=== PATIENT | female | born 1945 | race Caucasian/White ===

== ENCOUNTER → 2016-06-25 | Outpatient (CLI) | payer MEDICARE, BC | END | disposition home or self-care (01) | LOC: MW.CHFP 10:00 | PROVIDERS: ATTEND Emergency Medicine | DX: N81.10 Cystocele, unspecified (principal); M79.642 Pain in left hand; G89.29 Other chronic pain; M79.641 Pain in right hand; Z23 Encounter for immunization | CPT/HCPCS: 81001; 90732; G0009; G0463 ==

== ENCOUNTER → 2016-08-15 | Outpatient (CLI) | payer MEDICARE, BC | LOC: MW.CHUR 09:47 | PROVIDERS: ATTEND Urology | DX: N81.10 Cystocele, unspecified (principal); R32 Unspecified urinary incontinence | CPT/HCPCS: 81001; G0463 ==

== ENCOUNTER → 2016-10-02 | Outpatient (CLI) | payer MEDICARE, BC | LOC: MW.CHFP 14:04 | PROVIDERS: ATTEND Emergency Medicine | DX: J31.2 Chronic pharyngitis (principal) | CPT/HCPCS: 36415; 85025; 87070; G0463 ==

== ENCOUNTER 2018-12-21 10:36 | Emergency (ER) | payer MEDICARE, BC ==
[2018-12-21 10:44] VITALS: BP 146/54
[2018-12-21] MEDS ORDERED: Morphine 2 MG/ML Syringe IM ONE (10:57)
[2018-12-21] MEDS ORDERED: Ondansetron 4 MG Tab.DIS PO ONE (10:57)
--- NOTE | 2018-12-21 10:57 | EDM.PDOC ---
ED HPI GENERAL MEDICAL PROBLEM - General Chief Complaint: Upper Extremity Injury/Pain Stated Complaint: INJURED RT WRIST Time Seen by Provider: 12/21/18 10:43 Source of Information: Reports: Patient History Limitations: Reports: No Limitations - History of Present Illness INITIAL COMMENTS - FREE TEXT/NARRATIVE: HISTORY AND PHYSICAL: History of present illness: Patient is a 73-year-old female who presents to the emergency room today with complaints of right wrist pain after a fall. 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 She has pain namely in the wrist that radiates up into her forearm. She denies hitting her head or having any loss of consciousness. Patient denies any fever, chills, headache, change in vision, syncope or near syncope. Denies any chest pain, back pain, shortness of breath or cough. Denies any GI or symptoms. Patient has been eating and drinking appropriately. Review of systems: As per history of present illness and below otherwise all systems reviewed and negative. Past medical history: As per history of present illness and as reviewed below otherwise noncontributory. Surgical history: As per history of present illness and as reviewed below otherwise noncontributory. Social history: See social history for further information Family history: As per history of present illness and as reviewed below otherwise noncontributory. Physical exam: General: Well-developed and well-nourished 73-year-old female. Alert and oriented. Nontoxic appearing and in no acute distress. HEENT: Atraumatic, normocephalic, pupils equal and reactive bilaterally, negative for conjunctival pallor or scleral icterus, mucous membranes moist, trachea midline. No drooling or trismus noted. No meningeal signs. No hot potato voice noted. Lungs: Clear to auscultation, breath sounds equal bilaterally, chest nontender. Heart: S1S2, regular rate and rhythm without overt murmur Abdomen: Soft, nondistended, nontender. Skin: Intact, warm, dry. No lesions or rashes noted. Extremities: Right wrist pain with palpation, soft tissue swelling. Moves all extremities per self without difficulty or deficits. Strong radial pulse. Capillary refill less than 3 seconds. Neurovascular unremarkable. Neuro: Awake, alert, oriented. Cranial nerves II through XII unremarkable. Cerebellum unremarkable. Motor and sensory unremarkable throughout. Exam nonfocal. Notes: X-ray shows a dorsally impacted distal radial fracture. Dr Bolton, Orthopedist in [place], was consulted on this case. Patient can follow up with ortho in the next 1-2 days. This information was shared with patient/family. Fiberglass splint applied with sling. The need for follow-up was discussed with patient and family member at bedside. Supportive care measures were reviewed and discussed. Voices understanding and is agreeable to plan of care. Denies any further questions or concerns at this time. Diagnostics: Right wrist x-ray Therapeutics: Morphine, Zofran Prescription: Brohard, Zofran Impression: Closed radial fracture Plan: 1. Rest, ice, elevate the affected extremity. Please wear the splint and sling as directed. 2. Tylenol and/or Ibuprofen as needed for pain management. 3. Follow up with the Orthopedic provider as we discussed. Return to the ED as needed and as discussed. Definitive disposition and diagnosis as appropriate pending reevaluation and review of above. Right Arm Pain Score (Numeric/FACES): 10 - Related Data Allergies Allergy/AdvReac Type Severity Reaction Status Date / Time Sulfa (Sulfonamide Allergy Cannot Verified 12/21/18 10:39 Antibiotics) Remember Home Meds: Home Meds Pantoprazole [ProTONIX] 40 mg PO DAILY 03/18/14 [History] Tiotropium [Spiriva HandiHaler] 1 inhalation INH ACBREAKFAST 03/18/14 [History] ALPRAZolam [Alprazolam] 1 tab PO ASDIRECTED PRN 02/25/15 [History] Aspirin [Halfprin] 1 tab PO DAILY 02/25/15 [History] Fluocinonide [Lidex 0.05% Oint] 1 applic TOP ASDIRECTED PRN 02/25/15 [History] Fluticasone/Salmeterol [Advair Diskus 250-50] 1 inh INH BID 02/25/15 [History] Acetaminophen/HYDROcodone [Brohard 325-5 MG] 1 tab PO Q4H #30 tablet 12/21/18 [Rx] Ondansetron [Zofran ODT] 4 mg PO Q6H PRN #10 tab.dis 12/21/18 [Rx] Past Medical History Other HEENT History: Pharyngitis, Eyelid cyst, wears glasses Other Respiratory History: 40 yr history of smoking QUIT 10 yrs ago, Hx: Lung biopsy-from pnumonia- result fluid, COPD-uses inhaler daily- used this AM Other Gastrointestinal History: takes protonix daily Other Genitourinary History: hx: Acute UTI Other Musculoskeletal History: Some arthritits to knees, hx: Impinged Right Shoulder "doing pretty good currently", restless legs-uses alprazolam prn Other Dermatologic History: Dermatitis - Past Surgical History Other GI Surgeries/Procedures: Lap Cholecystectomy Other Female Surgeries/Procedures: Colporrhaphy, Repair of Cystocele Review of Systems - Review of Systems Review Of Systems: ROS reveals no pertinent complaints other than HPI. ED EXAM, GENERAL - Physical Exam Exam: See Below (See dictation) Course - Vital Signs Last Recorded V/S: Last Vital Signs Temp 96.6 F 12/21/18 10:40 Pulse 79 12/21/18 10:40 Resp 18 12/21/18 10:40 BP 146/54 H 12/21/18 10:40 Pulse Ox 100 12/21/18 10:40 - Orders/Labs/Meds Orders: Active Orders 24 hr Category Date Time Status Wrist Comp Min 3V Rt [CR] Stat Exams 12/21/18 10:45 Taken DME for Discharge [COMM] Stat Oth 12/21/18 11:16 Ordered Meds: Medications Discontinued Medications Generic Name Dose Route Start Last Admin Trade Name Freq PRN Reason Stop Dose Admin Morphine Sulfate 2 mg 12/21/18 10:57 12/21/18 11:11 Morphine IM 12/21/18 10:58 2 mg ONETIME ONE Administration Ondansetron HCl 4 mg 12/21/18 10:57 12/21/18 11:11 Zofran Odt PO 12/21/18 10:58 4 mg ONETIME ONE Administration Departure - Departure Time of Disposition: 11:57 Disposition: Home, Self-Care 01 Clinical Impression: Fracture of radius Qualifiers: Encounter type: initial encounter Radius location: distal Fracture type: closed Fracture morphology: other fracture Laterality: right Qualified Code(s): S52.591A - Other fractures of lower end of right radius, initial encounter for closed fracture - Discharge Information Prescriptions: Acetaminophen/HYDROcodone [Brohard 325-5 MG] 1 tab PO Q4H #30 tablet Ondansetron [Zofran ODT] 4 mg PO Q6H PRN #10 tab.dis PRN Reason: Nausea Instructions: Radial Fracture Referrals: PCP,Unknown [Primary Care Provider] - Forms: ED Department Discharge Additional Instructions: The following information is given to patients seen in the emergency department who are being discharged to home. This information is to outline your options for follow-up care. We provide all patients seen in our emergency department with a follow-up referral. The need for follow-up, as well as the timing and circumstances, are variable depending upon the specifics of your emergency department visit. If you don't have a primary care physician on staff, we will provide you with a referral. We always advise you to contact your personal physician following an emergency department visit to inform them of the circumstance of the visit and for follow-up with them and/or the need for any referrals to a consulting specialist. The emergency department will also refer you to a specialist when appropriate. This referral assures that you have the opportunity for follow-up care with a specialist. All of these measure are taken in an effort to provide you with optimal care, which includes your follow-up. Under all circumstances we always encourage you to contact your private physician who remains a resource for coordinating your care. When calling for follow-up care, please make the office aware that this follow-up is from your recent emergency room visit. If for any reason you are refused follow-up, please contact the [facility] Emergency Department at and asked to speak to the emergency department charge nurse. [facility] [address] [place] [id number] [address] [facility] - [facility] Professional [facility] [address] [place] [address], [address] [place] [address] 1. Rest, ice, elevate the affected extremity. Please wear the splint and sling as directed. 2. Tylenol and/or Ibuprofen as needed for pain management. 3. Follow up with the Orthopedic provider as we discussed. Return to the ED as needed and as discussed. - My Orders Last 24 Hours: My Active Orders 12/21/18 10:45 Wrist Comp Min 3V Rt [CR] Stat 12/21/18 11:16 DME for Discharge [COMM] Stat - Assessment/Plan Last 24 Hours: My Active Orders 12/21/18 10:45 Wrist Comp Min 3V Rt [CR] Stat 12/21/18 11:16 DME for Discharge [COMM] Stat
--- NOTE | 2018-12-21 11:52 | CR ---
Indication: Injury and pain Technique: Right wrist 3 view Comparison: None Findings: There is a dorsally impacted and comminuted fracture of the distal radial metaphysis with dorsal angulation of the distal radial articular surface. Osteopenia. Distal ulna intact. No carpal malalignment. Degenerative disease Impression: Dorsally impacted distal radial fracture. Dictated by Gaurang Anaya MD @ Dec 21 2018 11:49AM Signed by Dr. Gaurang Anaya @ Dec 21 2018 11:50AM
== END 2018-12-21 12:04 | disposition home or self-care (01) ==
LOC: MW.ED 10:36
DX: S52.591A Other fractures of lower end of right radius, initial encounter for closed fracture (principal); J44.9 Chronic obstructive pulmonary disease, unspecified; Z88.2 Allergy status to sulfonamides; Z79.899 Other long term (current) drug therapy; Z79.82 Long term (current) use of aspirin; Z87.891 Personal history of nicotine dependence; W01.0XXA Fall on same level from slipping, tripping and stumbling without subsequent striking against object, initial encounter
CPT/HCPCS: 29125; 73110; 96372; 99283; A9270; J2270

== ENCOUNTER 2020-01-02 20:32 | Emergency (ER) | payer MEDICARE, BC ==
--- NOTE | 2020-01-02 20:34 | EDM.PDOC ---
ED HPI GENERAL MEDICAL PROBLEM - General Chief Complaint: Laceration Stated Complaint: LT ARM LACERATION Time Seen by Provider: 01/02/20 20:33 Source of Information: Reports: Patient History Limitations: Reports: No Limitations - History of Present Illness INITIAL COMMENTS - FREE TEXT/NARRATIVE: HISTORY AND PHYSICAL: History of present illness: Patient is a 74-year-old female who presents to the emergency room with complaints of a laceration to her left forearm. She states that she brushed her arm against a cupboard when she noticed the laceration/skin tear. She was zhen rned that it needed to be cleaned and possibly have stitches. She denies any other extremity involvement. Offers no systemic complaints. Review of systems: As per history of present illness and below otherwise all systems reviewed and negative. Past medical history: As per history of present illness and as reviewed below otherwise noncontributory. Surgical history: As per history of present illness and as reviewed below otherwise noncontributory. Social history: See social history for further information Family history: As per history of present illness and as reviewed below otherwise noncontributory. Physical exam: General: Thin well-nourished 74-year-old female. Alert and oriented. Nontoxic- appearing and in no acute distress. HEENT: Atraumatic, normocephalic, pupils equal and reactive bilaterally, negative for conjunctival pallor or scleral icterus, mucous membranes moist, TMs normal bilaterally, throat clear, neck supple, nontender, trachea midline. No drooling or trismus noted. No meningeal signs. No hot potato voice noted. Lungs: Clear to auscultation, breath sounds equal bilaterally, chest nontender. Heart: S1S2, regular rate and rhythm without overt murmur Abdomen: Soft, nondistended, nontender. Skin: 8 cm "U" show skin tear to the left mid forearm. Remaining skin is intact, warm, dry. No lesions or rashes noted. Hematologic: No petechiae or purpra. Mucosa appropriate color and normal nail bed color and refill. Extremities: She moves all extremities per self without difficulty or deficits, negative for cords or calf pain. Neurovascular unremarkable. Neuro: Awake, alert, oriented. Cranial nerves II through XII unremarkable. Cerebellum unremarkable. Motor and sensory unremarkable throughout. Exam nonfocal. Notes: Patient states that she had bumped her arm next to a cupboard, declines needing an x-ray. The skin tear is too superficial to do any type of suture. The area was thoroughly cleansed with chlorhexidine and wound wash. Steri-Strips, fourth inch were applied to the site. The nonstick dressing was applied. We discussed signs and symptoms that would prompt her to return to the emergency room and the need for follow-up with her primary care provider. Supportive care measures were reviewed and discussed. Voices understanding and is agreeable to plan of care. Denies any further questions or concerns at this time. Diagnostics: None Therapeutics: Tdap Prescription: None Impression: Skin tear, left arm Plan: 1. Keep the area clean and dry. Continue to monitor for signs of infection. Sutures to be removed in 7-10 days. 2. Tylenol and/or ibuprofen as needed for pain management. 3. Please follow-up with your primary care provider in the next 1-2 days. Return to the ED as needed and as discussed. Definitive disposition and diagnosis as appropriate pending reevaluation and review of above. - Related Data Allergies Allergy/AdvReac Type Severity Reaction Status Date / Time Sulfa (Sulfonamide Allergy Cannot Verified 01/02/20 21:10 Antibiotics) Remember Home Meds: Home Meds Pantoprazole [ProTONIX] 40 mg PO DAILY 03/18/14 [History] Tiotropium [Spiriva HandiHaler] 1 inhalation INH ACBREAKFAST 03/18/14 [History] ALPRAZolam [Alprazolam] 1 tab PO ASDIRECTED PRN 02/25/15 [History] Aspirin [Halfprin] 1 tab PO DAILY 02/25/15 [History] Fluocinonide [Lidex 0.05% Oint] 1 applic TOP ASDIRECTED PRN 02/25/15 [History] Fluticasone/Salmeterol [Advair Diskus 250-50] 1 inh INH BID 02/25/15 [History] Acetaminophen/HYDROcodone [[place] 325-5 MG] 1 tab PO Q4H #30 tablet 12/21/18 [Rx] Ondansetron [Zofran ODT] 4 mg PO Q6H PRN #10 tab.dis 12/21/18 [Rx] Past Medical History Other HEENT History: Pharyngitis, Eyelid cyst, wears glasses Other Respiratory History: 40 yr history of smoking QUIT 10 yrs ago, Hx: Lung biopsy-from pnumonia- result fluid, COPD-uses inhaler daily- used this AM Other Gastrointestinal History: takes protonix daily Other Genitourinary History: hx: Acute UTI Other Musculoskeletal History: Some arthritits to knees, hx: Impinged Right Shoulder "doing pretty good currently", restless legs-uses alprazolam prn Other Dermatologic History: Dermatitis - Infectious Disease History Infectious Disease History: Reports: Chicken Pox, Measles, Mumps - Past Surgical History Other GI Surgeries/Procedures: Lap Cholecystectomy Other Female Surgeries/Procedures: Colporrhaphy, Repair of Cystocele Social & Family History - Family History Family Medical History: Noncontributory - Caffeine Use Caffeine Use: Reports: Coffee, Tea ED ROS GENERAL - Review of Systems Review Of Systems: Comprehensive ROS is negative, except as noted in HPI. ED EXAM, SKIN/RASH Exam: See Below (See dictation) Course - Vital Signs Last Recorded V/S: Last Vital Signs Temp 96.6 F L 01/02/20 20:45 Pulse 81 01/02/20 20:45 Resp 20 01/02/20 20:45 BP 142/70 H 01/02/20 20:45 Pulse Ox 96 01/02/20 20:45 - Orders/Labs/Meds Orders: Active Orders 24 hr Category Date Time Status Communication Order [RC] STAT Care 01/02/20 20:40 Active Vaccines to be Administered [RC] PER UNIT ROUTINE Care 01/02/20 20:39 Active Meds: Medications Discontinued Medications Generic Name Dose Route Start Last Admin Trade Name Freq PRN Reason Stop Dose Admin Diphtheria/Tetanus/Acell Pertussis 0.5 ml 01/02/20 20:39 01/02/20 21:04 Adacel IM 01/02/20 20:40 0.5 ml .ONCE ONE Administration Departure - Departure Time of Disposition: 21:09 Disposition: Home, Self-Care 01 Clinical Impression: Skin tear - Discharge Information Instructions: Skin Tear, [id number] Referrals: Juno Ochoa MD [Primary Care Provider] - Forms: ED Department Discharge Additional Instructions: The following information is given to patients seen in the emergency department who are being discharged to home. This information is to outline your options for follow-up care. We provide all patients seen in our emergency department with a follow-up referral. The need for follow-up, as well as the timing and circumstances, are variable depending upon the specifics of your emergency department visit. If you don't have a primary care physician on staff, we will provide you with a referral. We always advise you to contact your personal physician following an emergency department visit to inform them of the circumstance of the visit and for follow-up with them and/or the need for any referrals to a consulting specialist. The emergency department will also refer you to a specialist when appropriate. This referral assures that you have the opportunity for follow-up care with a specialist. All of these measure are taken in an effort to provide you with optimal care, which includes your follow-up. Under all circumstances we always encourage you to contact your private physician who remains a resource for coordinating your care. When calling for follow-up care, please make the office aware that this follow-up is from your recent emergency room visit. If for any reason you are refused follow-up, please contact the [facility] Emergency Department at and asked to speak to the emergency department charge nurse. [facility] [address] [place] [address] [place] [address] Thank you for choosing the [facility] emergency department in [place] for your medical needs today. It was a pleasure caring for you. Today you were seen in the emergency department for an tear of the left forearm. 1. Keep the area clean and dry. Continue to monitor for signs of infection. These do not pull or rip away the Steri-Strips, these will fall off on their own. If you need to you may trim away the edges. If Steri-Strips should fall off within the next 1 to 3 days please replace them as I have given you additional Steri-Strips for home. 2. Tylenol and/or ibuprofen as needed for pain management. 3. Please follow-up with your primary care provider in the next 1-2 days. Return to the ED as needed and as discussed. Sepsis Event Note (ED) - Focused Exam Vital Signs: Vital Signs Temp Pulse Resp BP Pulse Ox 01/02/20 20:45 96.6 F L 81 20 142/70 H 96 - My Orders Last 24 Hours: My Active Orders 01/02/20 20:39 Vaccines to be Administered [RC] PER UNIT ROUTINE 01/02/20 20:40 Communication Order [RC] STAT - Assessment/Plan Last 24 Hours: My Active Orders 01/02/20 20:39 Vaccines to be Administered [RC] PER UNIT ROUTINE 01/02/20 20:40 Communication Order [RC] STAT
[2020-01-02] MEDS ORDERED: Diphtheria,Pertussis(Acell),Tetanus Vaccine 0.5 ML Syringe IM ONE (20:39)
[2020-01-02 21:16] VITALS: BP 142/70; PULSE 81
== END 2020-01-02 21:11 | disposition home or self-care (01) ==
LOC: MW.ED 20:32
DX: S51.812A Laceration without foreign body of left forearm, initial encounter (principal); J44.9 Chronic obstructive pulmonary disease, unspecified; Z88.2 Allergy status to sulfonamides; Z79.899 Other long term (current) drug therapy; Z23 Encounter for immunization; W26.9XXA Contact with unspecified sharp object(s), initial encounter
CPT/HCPCS: 90471; 90715; 99282; 99283-25

== ENCOUNTER 2020-05-29 09:04 | Inpatient (IN) | payer MEDICARE, BC ==
--- NOTE | 2020-05-29 09:18 | EDM.PDOC ---
ED HPI GENERAL MEDICAL PROBLEM - General Chief Complaint: Respiratory Problem Stated Complaint: COUGH,SORE THROAT,FEVER Time Seen by Provider: 05/29/20 09:17 Source of Information: Reports: Patient History Limitations: Reports: No Limitations - History of Present Illness INITIAL COMMENTS - FREE TEXT/NARRATIVE: Patient is a 75-year-old female who presents today for fatigue cough fevers. Patient states symptoms started last Saturday and she has been sore throat with a cough. She went to urgent care and was given steroids and a Z-Carlos. Patient states that she was also tested for Covid which was negative but believes she had exposure at the time. Patient reports today that she has had a chronic cough with sputum. Patient also reports some shortness of breath only with exe rtion. Patient chest pain to me with the report chest pain to the nurse. chest Pain Score (Numeric/FACES): 2 - Related Data Allergies Allergy/AdvReac Type Severity Reaction Status Date / Time Sulfa (Sulfonamide Allergy Cannot Verified 05/29/20 09:23 Antibiotics) Remember Home Meds: Home Meds Pantoprazole [ProTONIX] 40 mg PO DAILY 03/18/14 [History] Tiotropium [Spiriva HandiHaler] 1 inhalation INH ACBREAKFAST 03/18/14 [History] ALPRAZolam [Alprazolam] 0.5 mg PO ASDIRECTED PRN 02/25/15 [History] Aspirin [Halfprin] 1 tab PO DAILY 02/25/15 [History] Fluocinonide [Lidex 0.05% Oint] 1 applic TOP ASDIRECTED PRN 02/25/15 [History] Fluticasone/Salmeterol [Advair Diskus 250-50] 1 inh INH BID 02/25/15 [History] Acetaminophen/HYDROcodone [[place] 325-5 MG] 1 tab PO Q4H #30 tablet 12/21/18 [Rx] Ondansetron [Zofran ODT] 4 mg PO Q6H PRN #10 tab.dis 12/21/18 [Rx] Past Medical History Other HEENT History: Pharyngitis, Eyelid cyst, wears glasses Respiratory History: Reports: COPD Other Respiratory History: 40 yr history of smoking QUIT 10 yrs ago, Hx: Lung biopsy-from pnumonia- result fluid, COPD-uses inhaler daily- used this AM Gastrointestinal History: Reports: None Other Gastrointestinal History: takes protonix daily Other Genitourinary History: 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: Other Musculoskeletal History: Some arthritits to knees, hx: Impinged Right Shoulder "doing pretty good currently", restless legs-uses alprazolam prn Other Dermatologic History: Dermatitis - Infectious Disease History Infectious Disease History: Reports: Chicken Pox, Measles, Mumps - Past Surgical History Other GI Surgeries/Procedures: Lap Cholecystectomy Other Female Surgeries/Procedures: Colporrhaphy, Repair of Cystocele Social & Family History - Family History Family Medical History: No Pertinent Family History - Caffeine Use Caffeine Use: Reports: Coffee, Tea ED ROS GENERAL - Review of Systems Review Of Systems: See Below Constitutional: Reports: Fever, Malaise HEENT: Reports: No Symptoms Respiratory: Reports: Shortness of Breath, Cough Cardiovascular: Reports: No Symptoms Endocrine: Reports: No Symptoms GI/Abdominal: Reports: No Symptoms : Reports: No Symptoms Musculoskeletal: Reports: No Symptoms Skin: Reports: No Symptoms Neurological: Reports: No Symptoms Psychiatric: Reports: No Symptoms Hematologic/Lymphatic: Reports: No Symptoms Immunologic: Reports: No Symptoms ED EXAM, GENERAL - Physical Exam Exam: See Below Exam Limited By: No Limitations General Appearance: Alert, WD/WN Eye Exam: Bilateral Eye: EOMI, PERRL Throat/Mouth: Normal Inspection Respiratory/Chest: No Respiratory Distress, Rhonchi Cardiovascular: Normal Peripheral Pulses, Regular Rate, Rhythm GI/Abdominal: Normal Bowel Sounds, Soft, Non-Tender Extremities: Normal Inspection, Normal Range of Motion Neurological: Alert, Oriented, CN II-XII Intact #1 Interpretation EKG Date: 05/29/20 Time: 09:12 Rhythm: Other (sinus tach) Rate (Beats/Min): 106 ST-T: Normal Course - Vital Signs Last Recorded V/S: Last Vital Signs Temp 97.9 F 05/29/20 12:24 Pulse 100 05/29/20 12:24 Resp 18 05/29/20 12:24 BP 141/67 H 05/29/20 12:24 Pulse Ox 93 L 05/29/20 12:24 - Orders/Labs/Meds Orders: Active Orders 24 hr Category Date Time Status EKG 12 Lead [EKG Documentation Completion] [RC] STAT Care 05/29/20 09:29 Active RT Post Treatment Assessment [RC] Click to Edit Care 05/29/20 09:37 Active RT Pre-Treatment Assessment [RC] Click to Edit Care 05/29/20 09:37 Active Sodium Chloride 0.9% [Normal Saline] 1,000 ml Med 05/29/20 11:30 Active IV ASDIRECTED Medication Orders Sodium Chloride (Normal Saline) 1,000 mls @ 1,000 mls/hr IV ASDIRECTED INNA Last Admin: 05/29/20 11:43 Dose: 1,000 mls/hr Documented by: QI Labs: Laboratory Tests 05/29/20 05/29/20 05/29/20 Range/Units 09:11 09:11 09:11 WBC 8.55 (4.0-11.0) K/uL RBC 3.92 L (4.30-5.90) M/uL Hgb 12.1 (12.0-16.0) g/dL Hct 36.3 (36.0-46.0) % MCV 92.6 (80.0-98.0) fL MCH 30.9 (27.0-32.0) pg MCHC 33.3 (31.0-37.0) g/dL RDW Std Deviation 49.4 (28.0-62.0) fl RDW Coeff of Alvaro 15 (11.0-15.0) % Plt Count 305 (150-400) K/uL MPV 9.30 (7.40-12.00) fL Neut % (Auto) 79.3 (48.0-80.0) % Lymph % (Auto) 15.0 L (16.0-40.0) % [place] % (Auto) 5.6 (0.0-15.0) % Eos % (Auto) 0.0 (0.0-7.0) % Baso % (Auto) 0.1 (0.0-1.5) % Neut # (Auto) 6.8 H (1.4-5.7) K/uL Lymph # (Auto) 1.3 (0.6-2.4) K/uL [place] # (Auto) 0.5 (0.0-0.8) K/uL Eos # (Auto) 0.0 (0.0-0.7) K/uL Baso # (Auto) 0.0 (0.0-0.1) K/uL Nucleated RBC % 0.0 /100WBC Nucleated RBCs # 0 K/uL D-Dimer, Quantitative (0.0-0.50) mg/L FEU Lactate 1.5 (0.20-2.00) mmol/L Sodium 135 L (136-145) mmol/L Potassium 4.1 (3.5-5.1) mmol/L Chloride 102 (98-107) mmol/L Carbon Dioxide 23.0 (21.0-32.0) mmol/L BUN 12 (7.0-18.0) mg/dL Creatinine 0.9 (0.6-1.0) mg/dL Est Cr Clr Drug Dosing 45.16 mL/min Estimated GFR (MDRD) > 60.0 ml/min Glucose 101 (74-106) mg/dL Calcium 9.1 (8.5-10.1) mg/dL Total Bilirubin 0.2 (0.2-1.0) mg/dL AST 89 H (15-37) IU/L ALT 102 H (14-63) IU/L Alkaline Phosphatase 55 (46-116) U/L Troponin I (0.000-0.056) ng/mL Total Protein 6.9 (6.4-8.2) g/dL Albumin 3.8 (3.4-5.0) g/dL Globulin 3.1 (2.6-4.0) g/dL Albumin/Globulin Ratio 1.2 (0.9-1.6) Lipase 150 (73-393) U/L Influenza Type A RNA (NEGATIVE) Influenza Type B RNA (NEGATIVE) SARS-CoV-2 RNA (LUIS) (NEGATIVE) 05/29/20 05/29/20 05/29/20 Range/Units 09:11 09:11 10:05 WBC (4.0-11.0) K/uL RBC (4.30-5.90) M/uL Hgb (12.0-16.0) g/dL Hct (36.0-46.0) % MCV (80.0-98.0) fL MCH (27.0-32.0) pg MCHC (31.0-37.0) g/dL RDW Std Deviation (28.0-62.0) fl RDW Coeff of Alvaro (11.0-15.0) % Plt Count (150-400) K/uL MPV (7.40-12.00) fL Neut % (Auto) (48.0-80.0) % Lymph % (Auto) (16.0-40.0) % [place] % (Auto) (0.0-15.0) % Eos % (Auto) (0.0-7.0) % Baso % (Auto) (0.0-1.5) % Neut # (Auto) (1.4-5.7) K/uL Lymph # (Auto) (0.6-2.4) K/uL [place] # (Auto) (0.0-0.8) K/uL Eos # (Auto) (0.0-0.7) K/uL Baso # (Auto) (0.0-0.1) K/uL Nucleated RBC % /100WBC Nucleated RBCs # K/uL D-Dimer, Quantitative 0.46 (0.0-0.50) mg/L FEU Lactate (0.20-2.00) mmol/L Sodium (136-145) mmol/L Potassium (3.5-5.1) mmol/L Chloride (98-107) mmol/L Carbon Dioxide (21.0-32.0) mmol/L BUN (7.0-18.0) mg/dL Creatinine (0.6-1.0) mg/dL Est Cr Clr Drug Dosing mL/min Estimated GFR (MDRD) ml/min Glucose (74-106) mg/dL Calcium (8.5-10.1) mg/dL Total Bilirubin (0.2-1.0) mg/dL AST (15-37) IU/L ALT (14-63) IU/L Alkaline Phosphatase (46-116) U/L Troponin I < 0.050 (0.000-0.056) ng/mL Total Protein (6.4-8.2) g/dL Albumin (3.4-5.0) g/dL Globulin (2.6-4.0) g/dL Albumin/Globulin Ratio (0.9-1.6) Lipase (73-393) U/L Influenza Type A RNA NEGATIVE (NEGATIVE) Influenza Type B RNA NEGATIVE (NEGATIVE) SARS-CoV-2 RNA (LUIS) POSITIVE H (NEGATIVE) Meds: Medications Generic Name Dose Route Start Last Admin Trade Name Freq PRN Reason Stop Dose Admin Sodium Chloride 1,000 mls @ 1,000 mls/hr 05/29/20 11:30 05/29/20 11:43 Normal Saline IV 1,000 mls/hr ASDIRECTED INNA Administration Discontinued Medications Generic Name Dose Route Start Last Admin Trade Name Freq PRN Reason Stop Dose Admin Albuterol 1 gm 05/29/20 09:36 05/29/20 09:47 Ventolin Hfa INH 05/29/20 09:37 Not Given Q2H ONE Albuterol 8 gm 05/29/20 09:44 05/29/20 09:47 Ventolin Hfa INH 05/29/20 09:45 Not Given NOW STA Albuterol 1 gm 05/29/20 10:00 05/29/20 10:05 Ventolin Hfa INH 05/29/20 10:01 2 puff Q2H ONE Administration Albuterol Confirm 05/29/20 09:44 05/29/20 09:48 Ventolin Hfa Administered 05/29/20 09:45 Not Given Dose 8 gm INH .STK-MED ONE Methylprednisolone Sodium Succinate 125 mg 05/29/20 09:34 05/29/20 10:04 Solu-Medrol IVPUSH 05/29/20 09:35 125 mg ONETIME ONE Administration - Re-Assessments/Exams Free Text/Narrative Re-Assessment/Exam: 05/29/20 11:26 Patient is Covid positive and also not tachycardic to the 120s 130s. Will obtain a CT PE for the patient and admit. 05/29/20 12:38 Pt's d-dimer is neg will hold off on CT and give IVF. Departure - Departure Time of Disposition: 11:27 Disposition: Admitted As Inpatient 67 Condition: Good Clinical Impression: COVID-19 - Discharge Information *PRESCRIPTION DRUG MONITORING PROGRAM REVIEWED*: Not Applicable *COPY OF PRESCRIPTION DRUG MONITORING REPORT IN PATIENT LIV: Not Applicable Sepsis Event Note (ED) - Focused Exam Vital Signs: Vital Signs Temp Pulse Resp BP Pulse Ox 05/29/20 10:33 92 112/45 L 90 L 05/29/20 10:20 93 18 116/50 L 92 L 05/29/20 10:05 97 18 120/48 L 92 L 05/29/20 09:32 100 17 126/56 L 94 L 05/29/20 09:20 106 H 93 L 05/29/20 09:18 97.9 F 119 H 21 H 142/70 H 91 L - My Orders Last 24 Hours: My Active Orders 05/29/20 09:29 EKG 12 Lead [EKG Documentation Completion] [RC] STAT 05/29/20 09:37 RT Post Treatment Assessment [RC] Click to Edit RT Pre-Treatment Assessment [RC] Click to Edit 05/29/20 11:30 Sodium Chloride 0.9% [Normal Saline] 1,000 ml IV ASDIRECTED - Assessment/Plan Last 24 Hours: My Active Orders 05/29/20 09:29 EKG 12 Lead [EKG Documentation Completion] [RC] STAT 05/29/20 09:37 RT Post Treatment Assessment [RC] Click to Edit RT Pre-Treatment Assessment [RC] Click to Edit 05/29/20 11:30 Sodium Chloride 0.9% [Normal Saline] 1,000 ml IV ASDIRECTED Assessment:: Patient is a 75-year-old female presents today for body aches cough fevers ch ills. Patient is already being given steroids antibiotics. Will retest for Covid, x-ray and give steroids as she did not take her dose today.
[2020-05-29] MEDS ORDERED: methylPREDNISolone Sodium Succinate 125 MG/2 ML SDV IVPUSH ONE (09:34)
[2020-05-29] MEDS ORDERED: Albuterol HFA 18 Gm Inhaler INH ONE (09:36)
[2020-05-29] MEDS ORDERED: Albuterol HFA 18 Gm Inhaler INH STA (09:44)
[2020-05-29] MEDS ORDERED: Albuterol 8 GM Inhaler INH ONE ×2 (09:44→10:00)
[2020-05-29 09:52] LABS: BLOOD UREA NITROGEN,BUN 12 mg/dL (7.0-18.0); CHLORIDE,CL 102 mmol/L (98-107); GLUCOSE RANDOM 101 mg/dL (74-106); LIPASE 150 U/L (73-393); POTASSIUM,K 4.1 mmol/L (3.5-5.1); SODIUM,NA 135 mmol/L (136-145)
--- NOTE | 2020-05-29 10:05 | CR ---
INDICATION: Cough, possible COVID-19 pneumonia. TECHNIQUE: Chest 1 view. COMPARISON: 08/27/2013. FINDINGS: Cardiovascular and mediastinum: Heart size and vasculature are normal in caliber and appearance. Mediastinum is within normal limits. Lungs and pleural space: Lungs are clear. No sign of infiltrate or mass. No sign of pleural effusion. No pneumothorax. Bones and soft tissues: No significant findings. IMPRESSION: 1. Pulmonary hyperinflation, stable. 2. No plain film evidence for viral pneumonia. Dictated by Juno Batista MD @ May 29 2020 10:03AM Signed by Dr. Juno Batista @ May 29 2020 10:04AM
[2020-05-29 10:54] LABS: CORONAVIRUS COVID-19 NAA POSITIVE (NEGATIVE); INFLUENZA A NAA NEGATIVE (NEGATIVE); INFLUENZA B NAA NEGATIVE (NEGATIVE)
[2020-05-29] MEDS ORDERED: Sodium Chloride 0.9% 1,000 ML IV SCH (11:30)
[2020-05-29] MEDS ORDERED: REMDESIVIR 200 MG in Sodium Chloride 0.9% 250 ML IV ONE ×2 (13:55→14:30)
[2020-05-29] MEDS ORDERED: Enoxaparin 40 MG/0.4 ML Syringe SUBCUT SCH (14:00)
[2020-05-29] MEDS ORDERED: Albuterol/Ipratropium 4 GM Inhalation Spray INH PRN (14:00)
[2020-05-29] MEDS ORDERED: ALPRAZolam 0.5 MG Tab PO PRN (14:01)
--- NOTE | 2020-05-29 14:07 | PCM.HP.2 ---
H&P History of Present Illness - General Date of Service: 05/29/20 Admit Problem/Dx: Admission Diagnosis/Problem Admission Diagnosis/Problem Hypoxia - History of Present Illness Initial Comments - Free Text/Narative: 75 yo female with pmh of COPD. Last week she drove her daughter to an out of town doctors appointment. Her daughter tested positive for COVID the next day. She reports feeling of myaglias and fever and tested negative for COVID last . She presents to the Clinic today with increasing shortness of breath and cough. CXR was clear patient satting 87% on room air with exertion. chest Pain Score (Numeric/FACES): 0 - Related Data Allergies/Adverse Reactions: Allergies Allergy/AdvReac Type Severity Reaction Status Date / Time Sulfa (Sulfonamide Allergy Cannot Verified 05/29/20 09:23 Antibiotics) Remember Home Medications: Home Meds Pantoprazole [ProTONIX] 40 mg PO DAILY 03/18/14 [History] Tiotropium [Spiriva HandiHaler] 1 inhalation INH ACBREAKFAST 03/18/14 [History] ALPRAZolam [Alprazolam] 0.5 mg PO ASDIRECTED PRN 02/25/15 [History] Aspirin [Halfprin] 1 tab PO DAILY 02/25/15 [History] Fluocinonide [Lidex 0.05% Oint] 1 applic TOP ASDIRECTED PRN 02/25/15 [History] Fluticasone/Salmeterol [Advair Diskus 250-50] 1 inh INH BID 02/25/15 [History] Acetaminophen/HYDROcodone [Bee 325-5 MG] 1 tab PO Q4H #30 tablet 12/21/18 [Rx] Ondansetron [Zofran ODT] 4 mg PO Q6H PRN #10 tab.dis 12/21/18 [Rx] Past Medical History Other HEENT History: Pharyngitis, Eyelid cyst, wears glasses Respiratory History: Reports: COPD Other Respiratory History: 40 yr history of smoking QUIT 10 yrs ago, Hx: Lung biopsy-from pnumonia- result fluid, COPD-uses inhaler daily- used this AM Gastrointestinal History: Reports: None Other Gastrointestinal History: takes protonix daily Other Genitourinary History: 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 Musculoskeletal History: Some arthritits to knees, hx: Impinged Right Shoulder "doing pretty good currently", restless legs-uses alprazolam prn Other Dermatologic History: Dermatitis - Infectious Disease History Infectious Disease History: Reports: Chicken Pox, Measles, Mumps - Past Surgical History HEENT Surgical History: Reports: None Respiratory Surgical History: Reports: None GI Surgical History: Reports: Cholecystectomy Other GI Surgeries/Procedures: Lap Cholecystectomy Other Female Surgeries/Procedures: Colporrhaphy, Repair of Cystocele Dermatological Surgical History: Reports: None Social & Family History - Family History Family Medical History: No Pertinent Family History - Tobacco Use Tobacco Use Status *Q: Never Tobacco User Used Tobacco, but Quit: Yes Month/Year Tobacco Last Used: 15 Second Hand Smoke Exposure: No - Caffeine Use Caffeine Use: Reports: Coffee, Tea - Recreational Drug Use Recreational Drug Use: No H&P Review of Systems - Review of Systems: Review Of Systems: Comprehensive ROS is negative, except as noted in HPI. Exam - Exam Exam: See Below - Vital Signs Vital Signs: Last Vital Signs Temp 36.6 C 05/29/20 12:24 Pulse 100 05/29/20 12:24 Resp 18 05/29/20 12:24 BP 141/67 H 05/29/20 12:24 Pulse Ox 93 L 05/29/20 12:24 Weight: 52 kg - Exam General: Alert, Oriented HEENT: Mucosa Moist & [place] Lungs: Clear to Auscultation, Normal Respiratory Effort Cardiovascular: Regular Rate, Regular Rhythm GI/Abdominal Exam: Normal Bowel Sounds, Soft, Non-Tender Extremities: Non-Tender, No Pedal Edema Skin: Warm, Dry, Intact - Patient Data Lab Results Last 24 hrs: Laboratory Results - last 24 hr 05/29/20 05/29/20 05/29/20 Range/Units 09:11 09:11 09:11 WBC 8.55 (4.0-11.0) K/uL RBC 3.92 L (4.30-5.90) M/uL Hgb 12.1 (12.0-16.0) g/dL Hct 36.3 (36.0-46.0) % MCV 92.6 (80.0-98.0) fL MCH 30.9 (27.0-32.0) pg MCHC 33.3 (31.0-37.0) g/dL RDW Std Deviation 49.4 (28.0-62.0) fl RDW Coeff of Alvaro 15 (11.0-15.0) % Plt Count 305 (150-400) K/uL MPV 9.30 (7.40-12.00) fL Neut % (Auto) 79.3 (48.0-80.0) % Lymph % (Auto) 15.0 L (16.0-40.0) % [place] % (Auto) 5.6 (0.0-15.0) % Eos % (Auto) 0.0 (0.0-7.0) % Baso % (Auto) 0.1 (0.0-1.5) % Neut # (Auto) 6.8 H (1.4-5.7) K/uL Lymph # (Auto) 1.3 (0.6-2.4) K/uL [place] # (Auto) 0.5 (0.0-0.8) K/uL Eos # (Auto) 0.0 (0.0-0.7) K/uL Baso # (Auto) 0.0 (0.0-0.1) K/uL Nucleated RBC % 0.0 /100WBC Nucleated RBCs # 0 K/uL D-Dimer, Quantitative (0.0-0.50) mg/L FEU Lactate 1.5 (0.20-2.00) mmol/L Sodium 135 L (136-145) mmol/L Potassium 4.1 (3.5-5.1) mmol/L Chloride 102 (98-107) mmol/L Carbon Dioxide 23.0 (21.0-32.0) mmol/L BUN 12 (7.0-18.0) mg/dL Creatinine 0.9 (0.6-1.0) mg/dL Est Cr Clr Drug Dosing 45.16 mL/min Estimated GFR (MDRD) > 60.0 ml/min Glucose 101 (74-106) mg/dL Calcium 9.1 (8.5-10.1) mg/dL Total Bilirubin 0.2 (0.2-1.0) mg/dL AST 89 H (15-37) IU/L ALT 102 H (14-63) IU/L Alkaline Phosphatase 55 (46-116) U/L Troponin I (0.000-0.056) ng/mL Total Protein 6.9 (6.4-8.2) g/dL Albumin 3.8 (3.4-5.0) g/dL Globulin 3.1 (2.6-4.0) g/dL Albumin/Globulin Ratio 1.2 (0.9-1.6) Lipase 150 (73-393) U/L Influenza Type A RNA (NEGATIVE) Influenza Type B RNA (NEGATIVE) SARS-CoV-2 RNA (LUIS) (NEGATIVE) 05/29/20 05/29/20 05/29/20 Range/Units 09:11 09:11 10:05 WBC (4.0-11.0) K/uL RBC (4.30-5.90) M/uL Hgb (12.0-16.0) g/dL Hct (36.0-46.0) % MCV (80.0-98.0) fL MCH (27.0-32.0) pg MCHC (31.0-37.0) g/dL RDW Std Deviation (28.0-62.0) fl RDW Coeff of Alvaro (11.0-15.0) % Plt Count (150-400) K/uL MPV (7.40-12.00) fL Neut % (Auto) (48.0-80.0) % Lymph % (Auto) (16.0-40.0) % [place] % (Auto) (0.0-15.0) % Eos % (Auto) (0.0-7.0) % Baso % (Auto) (0.0-1.5) % Neut # (Auto) (1.4-5.7) K/uL Lymph # (Auto) (0.6-2.4) K/uL [place] # (Auto) (0.0-0.8) K/uL Eos # (Auto) (0.0-0.7) K/uL Baso # (Auto) (0.0-0.1) K/uL Nucleated RBC % /100WBC Nucleated RBCs # K/uL D-Dimer, Quantitative 0.46 (0.0-0.50) mg/L FEU Lactate (0.20-2.00) mmol/L Sodium (136-145) mmol/L Potassium (3.5-5.1) mmol/L Chloride (98-107) mmol/L Carbon Dioxide (21.0-32.0) mmol/L BUN (7.0-18.0) mg/dL Creatinine (0.6-1.0) mg/dL Est Cr Clr Drug Dosing mL/min Estimated GFR (MDRD) ml/min Glucose (74-106) mg/dL Calcium (8.5-10.1) mg/dL Total Bilirubin (0.2-1.0) mg/dL AST (15-37) IU/L ALT (14-63) IU/L Alkaline Phosphatase (46-116) U/L Troponin I < 0.050 (0.000-0.056) ng/mL Total Protein (6.4-8.2) g/dL Albumin (3.4-5.0) g/dL Globulin (2.6-4.0) g/dL Albumin/Globulin Ratio (0.9-1.6) Lipase (73-393) U/L Influenza Type A RNA NEGATIVE (NEGATIVE) Influenza Type B RNA NEGATIVE (NEGATIVE) SARS-CoV-2 RNA (LUIS) POSITIVE H (NEGATIVE) Result Diagrams: 05/29/20 09:11 05/29/20 09:11 Sepsis Event Note - Evaluation Sepsis Screening Result: Possible Sepsis Risk - Focused Exam Vital Signs: Vital Signs Temp Pulse Resp BP Pulse Ox 05/29/20 12:24 36.6 C 100 18 141/67 H 93 L 05/29/20 12:05 97 15 128/61 91 L 05/29/20 11:20 124 H 17 135/64 91 L 05/29/20 11:05 90 16 118/63 90 L 05/29/20 10:33 92 112/45 L 90 L 05/29/20 10:20 93 18 116/50 L 92 L 05/29/20 10:05 97 18 120/48 L 92 L 05/29/20 09:32 100 17 126/56 L 94 L 05/29/20 09:20 106 H 93 L 05/29/20 09:18 36.6 C 119 H 21 H 142/70 H 91 L Problem List Initiated/Reviewed/Updated: Yes Orders Last 24hrs: Active Orders 24 hr Category Date Time Status Patient Status [ADT] Routine ADT 05/29/20 11:27 Active EKG 12 Lead [EKG Documentation Completion] [RC] STAT Care 05/29/20 09:29 Active Oxygen Therapy [RC] PRN Care 05/29/20 13:57 Ordered RT Post Treatment Assessment [RC] Click to Edit Care 05/29/20 09:37 Active RT Post Treatment Assessment [RC] Click to Edit Care 05/29/20 14:00 Ordered RT Pre-Treatment Assessment [RC] Click to Edit Care 05/29/20 09:37 Active RT Pre-Treatment Assessment [RC] Click to Edit Care 05/29/20 14:00 Ordered Up ad Tanisha [RC] ASDIRECTED Care 05/29/20 13:57 Ordered VTE/DVT Education [RC] PER UNIT ROUTINE Care 05/29/20 13:57 Ordered Vital Signs [RC] Q4H Care 05/29/20 13:57 Ordered Regular Diet [DIET] Diet 05/29/20 Breakfast Ordered CBC WITH AUTO DIFF [HEME] AM Lab 05/30/20 05:11 Ordered CBC WITH AUTO DIFF [HEME] AM Lab 05/31/20 05:11 Ordered CBC WITH AUTO DIFF [HEME] AM Lab 06/01/20 05:11 Ordered COMPREHENSIVE METABOLIC PN,CMP [CHEM] AM Lab 05/30/20 05:11 Ordered COMPREHENSIVE METABOLIC PN,CMP [CHEM] AM Lab 05/31/20 05:11 Ordered COMPREHENSIVE METABOLIC PN,CMP [CHEM] AM Lab 06/01/20 05:11 Ordered Albuterol/Ipratropium [Combivent Respimat] Med 05/29/20 14:00 Ordered 1 gm INH Q4H PRN Enoxaparin [Lovenox] Med 05/29/20 14:00 Ordered 40 mg SUBCUT Q24H Remdesivir 100 mg Med 05/30/20 14:00 Ordered Sodium Chloride 0.9% [Normal Saline] 100 ml IV Q24H Remdesivir 200 mg Med 05/29/20 13:55 Ordered Sodium Chloride 0.9% [Normal Saline] 250 ml IV ONETIME Sodium Chloride 0.9% [Normal Saline] 1,000 ml Med 05/29/20 11:30 Active IV ASDIRECTED dexAMETHasone Med 05/30/20 09:00 Ordered 6 mg PO DAILY Resuscitation Status Routine Resus Stat 05/29/20 13:57 Ordered Medication Orders Dexamethasone (Dexamethasone) 6 mg PO DAILY INNA Enoxaparin Sodium (Lovenox) 40 mg SUBCUT Q24H INNA Sodium Chloride (Normal Saline) 1,000 mls @ 1,000 mls/hr IV ASDIRECTED INNA Last Admin: 05/29/20 11:43 Dose: 1,000 mls/hr Documented by: QI Remdesivir 200 mg/ Sodium (Chloride) 250 mls @ 250 mls/hr IV ONETIME ONE Stop: 05/29/20 13:56 Remdesivir 100 mg/ Sodium (Chloride) 100 mls @ 100 mls/hr IV Q24H INNA Stop: 06/02/20 14:59 Assessment/Plan Comment:: 75 yo female admitted for COVID-19 Patient received solumedrol in the ED and is feeling better I spoke with patient regarding Remdesivir and patient is requesting its use. We will continue to monitor. I spoke with Dr. Ochoa and if patient is discharged tomorrow may be eligible for antibody therapy.
[2020-05-29] MEDS ORDERED: Acetaminophen 325 MG/10.15 ML ML PO PRN (20:47)
[2020-05-29] MEDS: Acetaminophen 325 MG Tab PO PRN (22:15)
[2020-05-29] MEDS: Pantoprazole 40 MG Tab.CR PO SCH (22:15)
[2020-05-30] MEDS: Acetaminophen 325 MG Tab PO PRN (04:59)
[2020-05-30 06:57] LABS: BLOOD UREA NITROGEN,BUN 15 mg/dL (7.0-18.0); CARBON DIOXIDE,CO2 23.7 mmol/L (21.0-32.0); CHLORIDE,CL 101 mmol/L (98-107); GLUCOSE RANDOM 79 mg/dL (74-106); POTASSIUM,K 3.7 mmol/L (3.5-5.1); SODIUM,NA 134 mmol/L (136-145)
[2020-05-30] MEDS ORDERED: ALPRAZolam 0.5 MG Tab PO PRN (08:30)
[2020-05-30] MEDS ORDERED: Pantoprazole 40 MG Tab.CR PO SCH (09:00)
[2020-05-30] MEDS ORDERED: Dexamethasone 4 MG Tab PO SCH (09:00)
[2020-05-30] MEDS: Pantoprazole 40 MG Tab.CR PO SCH (09:01)
--- NOTE | 2020-05-30 11:11 | PCM.DCSUM1 ---
Discharge Summary - Discharge Data Discharge Date: 05/30/20 Discharge Disposition: Home, Self-Care 01 Condition: Stable - Referral to Home Health Primary Care Physician: PCP None - Patient Summary/Data Hospital Course: 75 yo female with pmh of COPD who was admitted for COVID-19 when she presented with shortness of breath and cough. Chest x-ray was clear. She was treated with dexamethasone and remdesivir. She was monitored overnight and this morning she is feeling much better. Patient was discharged home to follow up with Dr. Ochoa. I called Dr. Ochoa and plan is to give outpatient antibody therapy if available. - Discharge Plan *PRESCRIPTION DRUG MONITORING PROGRAM REVIEWED*: Not Applicable *COPY OF PRESCRIPTION DRUG MONITORING REPORT IN PATIENT LIV: Not Applicable Prescriptions/Med Rec: dexAMETHasone [Decadron] 6 mg PO DAILY #9 tablet Home Medications: Home Meds Pantoprazole [ProTONIX] 40 mg PO DAILY 03/18/14 [History] Tiotropium [Spiriva HandiHaler] 1 inhalation INH ACBREAKFAST 03/18/14 [History] ALPRAZolam [Alprazolam] 0.5 - 0.75 mg PO BEDTIME PRN 02/25/15 [History] Aspirin [Halfprin] 1 tab PO DAILY 02/25/15 [History] Fluocinonide [Lidex 0.05% Oint] 1 applic TOP ASDIRECTED PRN 02/25/15 [History] Azithromycin [Zithromax] 250 mg PO DAILY 05/30/20 [History] Umeclidinium [place] [Incruse Ellipta] 1 inh IH DAILY 05/30/20 [History] dexAMETHasone [Decadron] 6 mg PO DAILY #9 tablet 05/30/20 [Rx] Forms: ED Department Discharge Referrals: Juno Ochoa MD [Physician] - 06/13/20 10:30 am - Discharge Summary/Plan Comment DC Time >30 min.: No - Patient Data Vitals - Most Recent: Last Vital Signs Temp 36.7 C 05/30/20 08:54 Pulse 89 05/30/20 08:54 Resp 16 05/30/20 08:54 BP 100/50 L 05/30/20 08:54 Pulse Ox 94 L 05/30/20 08:54 Weight - Most Recent: 52 kg I&O - Last 24 hours: Intake & Output 05/29/20 05/30/20 05/30/20 22:59 06:59 14:59 Intake Total 400 600 Output Total 400 Balance 0 600 Lab Results - Last 24 hrs: Laboratory Results - last 24 hr 05/29/20 05/29/20 05/29/20 Range/Units 09:11 09:11 10:05 WBC (4.0-11.0) K/uL RBC (4.30-5.90) M/uL Hgb (12.0-16.0) g/dL Hct (36.0-46.0) % MCV (80.0-98.0) fL MCH (27.0-32.0) pg MCHC (31.0-37.0) g/dL RDW Std Deviation (28.0-62.0) fl RDW Coeff of Alvaro (11.0-15.0) % Plt Count (150-400) K/uL MPV (7.40-12.00) fL Neut % (Auto) (48.0-80.0) % Lymph % (Auto) (16.0-40.0) % [place] % (Auto) (0.0-15.0) % Eos % (Auto) (0.0-7.0) % Baso % (Auto) (0.0-1.5) % Neut # (Auto) (1.4-5.7) K/uL Lymph # (Auto) (0.6-2.4) K/uL [place] # (Auto) (0.0-0.8) K/uL Eos # (Auto) (0.0-0.7) K/uL Baso # (Auto) (0.0-0.1) K/uL Nucleated RBC % /100WBC Nucleated RBCs # K/uL D-Dimer, Quantitative 0.46 (0.0-0.50) mg/L FEU Sodium (136-145) mmol/L Potassium (3.5-5.1) mmol/L Chloride (98-107) mmol/L Carbon Dioxide (21.0-32.0) mmol/L BUN (7.0-18.0) mg/dL Creatinine (0.6-1.0) mg/dL Est Cr Clr Drug Dosing mL/min Estimated GFR (MDRD) ml/min Glucose (74-106) mg/dL Calcium (8.5-10.1) mg/dL Total Bilirubin (0.2-1.0) mg/dL AST (15-37) IU/L ALT (14-63) IU/L Alkaline Phosphatase (46-116) U/L Troponin I < 0.050 (0.000-0.056) ng/mL Total Protein (6.4-8.2) g/dL Albumin (3.4-5.0) g/dL Globulin (2.6-4.0) g/dL Albumin/Globulin Ratio (0.9-1.6) Influenza Type A RNA NEGATIVE (NEGATIVE) Influenza Type B RNA NEGATIVE (NEGATIVE) SARS-CoV-2 RNA (LUIS) POSITIVE H (NEGATIVE) 05/30/20 05/30/20 Range/Units 06:08 06:08 WBC 5.39 (4.0-11.0) K/uL RBC 3.51 L (4.30-5.90) M/uL Hgb 10.7 L (12.0-16.0) g/dL Hct 32.1 L (36.0-46.0) % MCV 91.5 (80.0-98.0) fL MCH 30.5 (27.0-32.0) pg MCHC 33.3 (31.0-37.0) g/dL RDW Std Deviation 48.8 (28.0-62.0) fl RDW Coeff of Alvaro 15 (11.0-15.0) % Plt Count 242 (150-400) K/uL MPV 9.30 (7.40-12.00) fL Neut % (Auto) 69.3 (48.0-80.0) % Lymph % (Auto) 21.2 (16.0-40.0) % [place] % (Auto) 9.5 (0.0-15.0) % Eos % (Auto) 0.0 (0.0-7.0) % Baso % (Auto) 0.0 (0.0-1.5) % Neut # (Auto) 3.7 (1.4-5.7) K/uL Lymph # (Auto) 1.1 (0.6-2.4) K/uL [place] # (Auto) 0.5 (0.0-0.8) K/uL Eos # (Auto) 0.0 (0.0-0.7) K/uL Baso # (Auto) 0.0 (0.0-0.1) K/uL Nucleated RBC % 0.0 /100WBC Nucleated RBCs # 0 K/uL D-Dimer, Quantitative (0.0-0.50) mg/L FEU Sodium 134 L (136-145) mmol/L Potassium 3.7 (3.5-5.1) mmol/L Chloride 101 (98-107) mmol/L Carbon Dioxide 23.7 (21.0-32.0) mmol/L BUN 15 (7.0-18.0) mg/dL Creatinine 0.8 (0.6-1.0) mg/dL Est Cr Clr Drug Dosing 50.65 mL/min Estimated GFR (MDRD) > 60.0 ml/min Glucose 79 (74-106) mg/dL Calcium 8.7 (8.5-10.1) mg/dL Total Bilirubin 0.3 (0.2-1.0) mg/dL AST 75 H (15-37) IU/L ALT 109 H (14-63) IU/L Alkaline Phosphatase 48 (46-116) U/L Troponin I (0.000-0.056) ng/mL Total Protein 6.0 L (6.4-8.2) g/dL Albumin 3.1 L (3.4-5.0) g/dL Globulin 2.9 (2.6-4.0) g/dL Albumin/Globulin Ratio 1.1 (0.9-1.6) Influenza Type A RNA (NEGATIVE) Influenza Type B RNA (NEGATIVE) SARS-CoV-2 RNA (LUIS) (NEGATIVE) Med Orders - Current: Current Medications Acetaminophen (Tylenol) 650 mg PO Q6H PRN PRN Reason: Pain Last Admin: 05/30/20 04:59 Dose: 650 mg Documented by: Albuterol/Ipratropium (Combivent Respimat) 0 gm INH Q4H PRN PRN Reason: Dyspnea Alprazolam (Xanax) 0.5 mg PO BEDTIME PRN PRN Reason: Anxiety Dexamethasone (Dexamethasone) 6 mg PO DAILY INNA Last Admin: 05/30/20 09:00 Dose: 6 mg Documented by: Enoxaparin Sodium (Lovenox) 40 mg SUBCUT Q24H [facility] Last Admin: 05/29/20 14:38 Dose: 40 mg Documented by: Sodium Chloride (Normal Saline) 1,000 mls @ 1,000 mls/hr IV ASDIRECTED [facility] Last Admin: 05/29/20 11:43 Dose: 1,000 mls/hr Documented by: Remdesivir 100 mg/ Sodium (Chloride) 100 mls @ 100 mls/hr IV Q24H [facility] Stop: 06/02/20 14:59 Pantoprazole Sodium (Protonix) 40 mg PO DAILY [facility] Last Admin: 05/30/20 09:01 Dose: Not Given Documented by: Discontinued Medications Acetaminophen (Tylenol) 650 mg PO Q6H PRN PRN Reason: Pain Albuterol (Ventolin Hfa) 1 gm INH Q2H ONE Stop: 05/29/20 09:37 Last Admin: 05/29/20 09:47 Dose: Not Given Documented by: Albuterol (Ventolin Hfa) 8 gm INH NOW STA Stop: 05/29/20 09:45 Last Admin: 05/29/20 09:47 Dose: Not Given Documented by: Albuterol (Ventolin Hfa) 1 gm INH Q2H ONE Stop: 05/29/20 10:01 Last Admin: 05/29/20 10:05 Dose: 2 puff Documented by: Albuterol (Ventolin Hfa) Confirm Administered Dose 8 gm INH .STK-MED ONE Stop: 05/29/20 09:45 Last Admin: 05/29/20 09:48 Dose: Not Given Documented by: Alprazolam (Xanax) 0.5 mg PO DAILY PRN PRN Reason: Anxiety Last Admin: 05/29/20 22:15 Dose: 0.5 mg Documented by: Remdesivir 200 mg/ Sodium (Chloride) 250 mls @ 125 mls/hr IV ONETIME ONE Stop: 05/29/20 16:29 Last Admin: 05/29/20 14:50 Dose: 125 mls/hr Documented by: Methylprednisolone Sodium Succinate (Solu-Medrol) 125 mg IVPUSH ONETIME ONE Stop: 05/29/20 09:35 Last Admin: 05/29/20 10:04 Dose: 125 mg Documented by: Pantoprazole Sodium (Protonix) 40 mg PO DAILY [facility]
[2020-05-30 12:30] VITALS: BP 119/71; PULSE 96
[2020-05-30] MEDS ORDERED: REMDESIVIR 100 MG in Sodium Chloride 0.9% 100 ML IV SCH (14:00)
== END 2020-05-30 13:40 | disposition home or self-care (01) | DRG 179 ==
LOC: MW.ED 09:04 → MW.MS 11:27
PROVIDERS: ADMIT Internal Medicine; ATTEND Internal Medicine
PROC: XW033E5 Introduction of Remdesivir Anti-infective into Peripheral Vein, Percutaneous Approach, New Technology Group 5 (ICD-10-PCS; principal; 2020-05-29)
DX: U07.1 COVID-19 (principal); J44.9 Chronic obstructive pulmonary disease, unspecified; Z79.82 Long term (current) use of aspirin; Z79.899 Other long term (current) drug therapy; Z88.2 Allergy status to sulfonamides; Z87.891 Personal history of nicotine dependence; M17.0 Bilateral primary osteoarthritis of knee; Z87.440 Personal history of urinary (tract) infections; Z90.49 Acquired absence of other specified parts of digestive tract; H54.7 Unspecified visual loss
CPT/HCPCS: 0240U; 36415; 71045; 80053; 83605; 83690; 84484; 85025; 85379; 93005; 93010; 96374; 99283; 99285-25; A9270-GY; J1650; J2930; J3535-GY; J7030; J7050; J8540

== ENCOUNTER 2020-09-07 21:11 | Emergency (ER) | payer MEDICARE, BC ==
--- NOTE | 2020-09-07 21:18 | EDM.PDOC ---
<Brandin Navarro - Last Filed: 09/07/20 23:09> ED HPI GENERAL MEDICAL PROBLEM - General Stated Complaint: SHORTNESS OF BREATH Time Seen by Provider: 09/07/20 21:14 - History of Present Illness INITIAL COMMENTS - FREE TEXT/NARRATIVE: 11:09 PM: Patient has been seen and evaluated by me. Patient is clinically hemodynamically stable here in the ED. Patient does not appear to be in any respiratory distress. Patient's chest x-ray reveals chest Xray: Normal cardiac silhouette No infiltrates or effusions identified. No PTX No evidence of acute bony fracture. As interpreted by ER MD: Ramon Patient's labs are all within normal limits. Patient has an elevated D-dimer however utilizing age-adjusted D-dimer, patient's low risk for venous thromboembolism. Patient presentation does not appear to be consistent with PE at this time. Patient has requested that I switch her over to Zithromax as well as a longer prednisone taper that her logistics management specialist usually prescribes for her when she has the symptoms. Patient will be placed on a Z-Carlos. Patient will be given prednisone 40 mg daily x4, 30 mg daily x4, 20 mg daily x4, 10 mg daily x4. Patient be instructed to follow-up with her doctor in the next week for reevaluation. Reassessment at the time of disposition demonstrates that the patient is in no acute distress. The patient has remained stable throughout the entire ED visit and is without objective evidence for acute process requiring urgent intervention or hospitalization. The patient is stable for discharge, counseling is provided as documented above, discussed symptomatic treatment and specific conditions for return. I have spoken with the patient/caregiver and discussed todays findings, in addition to providing specific details for the plan of care. Questions are answered and there is agreement with the plan. - Related Data Allergies Allergy/AdvReac Type Severity Reaction Status Date / Time Sulfa (Sulfonamide Allergy Cannot Verified 09/07/20 21:19 Antibiotics) Remember Home Meds: Home Meds Pantoprazole [ProTONIX] 40 mg PO DAILY 03/18/14 [History] Tiotropium [Spiriva HandiHaler] 1 inhalation INH ACBREAKFAST 03/18/14 [History] ALPRAZolam [Alprazolam] 0.5 - 0.75 mg PO BEDTIME PRN 02/25/15 [History] Aspirin [Halfprin] 1 tab PO DAILY 02/25/15 [History] Fluocinonide [Lidex 0.05% Oint] 1 applic TOP ASDIRECTED PRN 02/25/15 [History] Umeclidinium [place] [Incruse Ellipta] 1 inh IH DAILY 05/30/20 [History] Azithromycin [Zithromax] 250 mg PO DAILY #4 tablet 09/07/20 [Rx] Doxycycline [Doxycycline Hyclate] 100 mg PO DAILY 09/07/20 [History] dexAMETHasone [Decadron] 5 mg PO DAILY 09/07/20 [History] predniSONE [Prednisone] 10 mg PO ASDIRECTED #36 tablet 09/07/20 [Rx] ED ROS GENERAL - Review of Systems Review Of Systems: See Below Departure - Departure Time of Disposition: 23:11 Disposition: Home, Self-Care 01 Condition: Good Clinical Impression: Bronchitis, Viral upper respiratory infection - Discharge Information Prescriptions: predniSONE [Prednisone] 10 mg PO ASDIRECTED #36 tablet Azithromycin [Zithromax] 250 mg PO DAILY #4 tablet Instructions: Viral Respiratory Infection, Uyoe-Ev-Lpdh, Acute Bronchitis, Adult Referrals: Juno Ochoa MD [Primary Care Provider] - Forms: ED Department Discharge Additional Instructions: You were seen and evaluated in the ER today secondary to symptoms consistent with an upper respiratory infection. You have been placed on a Z-Carlos and a prednisone taper. Please make an appointment to follow-up with your doctor within the week for reevaluation. Please return to the ER if you start experiencing any new or concerning symptoms including increasing shortness of breath. The following information is given to patients seen in the emergency department who are being discharged to home. This information is to outline your options for follow-up care. We provide all patients seen in our emergency department with a follow-up referral. The need for follow-up, as well as the timing and circumstances, are variable depending upon the specifics of your emergency department visit. If you don't have a primary care physician on staff, we will provide you with a referral. We always advise you to contact your personal physician following an emergency department visit to inform them of the circumstance of the visit and for follow-up with them and/or the need for any referrals to a consulting specialist. The emergency department will also refer you to a specialist when appropriate. This referral assures that you have the opportunity for follow-up care with a specialist. All of these measure are taken in an effort to provide you with optimal care, which includes your follow-up. Under all circumstances we always encourage you to contact your private physician who remains a resource for coordinating your care. When calling for follow-up care, please make the office aware that this follow-up is from your recent emergency room visit. If for any reason you are refused follow-up, please contact the [facility] Emergency Department at and asked to speak to the emergency department charge nurse. [facility] [address] [place] [address] [address] <Rodriguez Pat E - Last Filed: 09/10/20 13:01> ED HPI GENERAL MEDICAL PROBLEM - General Source of Information: Reports: Patient History Limitations: Reports: No Limitations - History of Present Illness INITIAL COMMENTS - FREE TEXT/NARRATIVE: HISTORY AND PHYSICAL: History of present illness: Patient states for the last 1 week she has had increased shortness of breath and sore throat with lymph node tenderness/enlargement. Past medical history of ADMINISTRATIVE ASST D, longstanding history of tobacco use (40+ years, quit 10 years ago). She states her shortness of breath is different from her regular respiratory issues. Her chest feels heavy. Shortness of breath increases with physical activity. She has had a sore throat and states the glands in her neck, right greater than left, are tender to touch and feel enlarged. Subjective fevers intermittently over the past week. Today she [facility] and was told she had bronchitis and a sinus infection. She was placed on prednisone and doxycycline. She wanted to come to the emergency room as there were no diagnostics done and needed additional reassurance. Had COVID-19 05/29/2020 and was admitted due to hypoxia. He had the first dose of her COVID-19 vaccine last week. Patient denies any chills, headache, change in vision, syncope or near syncope. Denies any chest pain, back pain, hemoptysis or cough. Denies any abdominal pain, nausea, vomiting, diarrhea, constipation or dysuria. Patient has been eating and drinking appropriately. Primary Care Provider: Dr Ochoa Review of systems: As per history of present illness and below otherwise all systems reviewed and negative. Past medical history: As per history of present illness and as reviewed below otherwise noncontributory. Surgical history: As per history of present illness and as reviewed below otherwise noncontributory. Social history: See social history for further information Family history: As per history of present illness and as reviewed below otherwise noncontributory. Physical exam: General: Well developed and well nourished 75 year old female. Alert and orientated x 3. Nontoxic in appearance and in no acute distress. Vital signs are stable and have been reviewed by me. Nursing notes were reviewed. HEENT: Atraumatic, normocephalic, pupils equal and reactive bilaterally, negative for conjunctival pallor or scleral icterus, mucous membranes moist, TMs normal bilaterally, throat clear, neck supple, mild lymphadenopathy and tenderness to bilateral submadibular region, trachea midline. No drooling or trismus noted. No meningeal signs. No hot potato voice noted. Lungs: Slightly diminished to auscultation bilaterally. No wheezes, rales, or rhonchi. Chest nontender. Normal work of breathing, no accessory muscles used. Heart: S1S2, regular rate and rhythm without overt murmur, gallops, or rubs. No JVD. No peripheral edema Abdomen: Soft, nondistended, nontender. Normoactive bowel sounds. Negative for masses or costovertebral tenderness. Skin: Intact, warm, dry. No lesions or rashes noted. Hematologic: No petechiae or purpra. Mucosa appropriate color and normal nail bed color and refill. Extremities: Atraumatic, moves all extremities per self without difficulty or deficits, negative for cords or calf pain. Neurovascular unremarkable. Neuro: Awake, alert, oriented. Cranial nerves II through XII unremarkable. Cerebellum unremarkable. Motor and sensory unremarkable throughout. Exam nonfo levon. Psychiatric: Mood and affect are appropriate. Normal thought process. Answering questions appropriately. Notes: *This patient was seen and evaluated during the 2019 SARS-CoV-2 novel coronavirus pandemic period. Community viral transmission is ongoing at time of this encounter and the emergency department is operating under pandemic response procedures. Patient denies any pain or chest pain at this time. Will do a cardiac work-up due to her PMH. Dr Navarro will follow up with this patient, diagnostic results are pending. Will disposition appropriately. Diagnostics: CBC, CMP, Troponin, EKG, CXR, Strep, D[employer]: SL Definitive disposition and diagnosis as appropriate pending reevaluation and review of above. chest area Pain Score (Numeric/FACES): 4 Past Medical History Other HEENT History: Pharyngitis, Eyelid cyst, wears glasses Respiratory History: Reports: COPD Other Respiratory History: 40 yr history of smoking QUIT 10 yrs ago, Hx: Lung biopsy-from pnumonia- result fluid, COPD-uses inhaler daily- used this AM Gastrointestinal History: Reports: None Other Gastrointestinal History: takes protonix daily Other Genitourinary History: hx: Acute UTI [employer]ING History: Reports: Other Musculoskeletal History: Some arthritits to knees, hx: Impinged Right Shoulder "doing pretty good currently", restless legs-uses alprazolam prn Other Dermatologic History: Dermatitis - Infectious Disease History Infectious Disease History: Reports: Chicken Pox, Measles, Mumps - Past Surgical History HEENT Surgical History: Reports: None Respiratory Surgical History: Reports: None GI Surgical History: Reports: Cholecystectomy Other GI Surgeries/Procedures: Lap Cholecystectomy Other Female Surgeries/Procedures: Colporrhaphy, Repair of Cystocele Dermatological Surgical History: Reports: None Social & Family History - Family History Family Medical History: No Pertinent Family History - Caffeine Use Caffeine Use: Reports: Coffee, Tea ED ROS GENERAL - Review of Systems Review Of Systems: Comprehensive ROS is negative, except as noted in HPI. ED EXAM, GENERAL - Physical Exam Exam: See Below (See dictation) Course - Vital Signs Last Recorded V/S: Last Vital Signs Temp 97.6 F 09/07/20 23:20 Pulse 92 09/07/20 23:20 Resp 16 09/07/20 23:20 BP 109/50 L 09/07/20 23:20 Pulse Ox 98 09/07/20 23:20 - Orders/Labs/Meds Labs: Laboratory Tests 09/07/20 09/07/20 09/07/20 Range/Units 21:20 21:20 21:20 WBC 5.37 (4.0-11.0) K/uL RBC 4.29 L (4.30-5.90) M/uL Hgb 13.3 (12.0-16.0) g/dL Hct 39.7 (36.0-46.0) % MCV 92.5 (80.0-98.0) fL MCH 31.0 (27.0-32.0) pg MCHC 33.5 (31.0-37.0) g/dL RDW Std Deviation 45.5 (28.0-62.0) fl RDW Coeff of Alvaro 13 (11.0-15.0) % Plt Count 486 H (150-400) K/uL MPV 9.70 (7.40-12.00) fL Neut % (Auto) 77.9 (48.0-80.0) % Lymph % (Auto) 18.1 (16.0-40.0) % [place] % (Auto) 3.4 (0.0-15.0) % Eos % (Auto) 0.2 (0.0-7.0) % Baso % (Auto) 0.4 (0.0-1.5) % Neut # (Auto) 4.2 (1.4-5.7) K/uL Lymph # (Auto) 1.0 (0.6-2.4) K/uL [place] # (Auto) 0.2 (0.0-0.8) K/uL Eos # (Auto) 0.0 (0.0-0.7) K/uL Baso # (Auto) 0.0 (0.0-0.1) K/uL Nucleated RBC % 0.0 /100WBC Nucleated RBCs # 0 K/uL D-Dimer, Quantitative 0.60 H (0.0-0.50) mg/L FEU Sodium 135 L (136-145) mmol/L Potassium 3.9 (3.5-5.1) mmol/L Chloride 100 (98-107) mmol/L Carbon Dioxide 22.3 (21.0-32.0) mmol/L BUN 17 (7.0-18.0) mg/dL Creatinine 1.0 (0.6-1.0) mg/dL Est Cr Clr Drug Dosing 39.58 mL/min Estimated GFR (MDRD) 54.2 ml/min Glucose 214 H (74-106) mg/dL Calcium 9.5 (8.5-10.1) mg/dL Total Bilirubin 0.2 (0.2-1.0) mg/dL AST 24 (15-37) IU/L ALT 36 (14-63) IU/L Alkaline Phosphatase 90 (46-116) U/L Troponin I < 0.050 (0.000-0.056) ng/mL Total Protein 7.9 (6.4-8.2) g/dL Albumin 3.7 (3.4-5.0) g/dL Globulin 4.2 H (2.6-4.0) g/dL Albumin/Globulin Ratio 0.9 (0.9-1.6) Group A Strep (PCR) (NOT DETECT) 09/07/20 Range/Units 21:31 WBC (4.0-11.0) K/uL RBC (4.30-5.90) M/uL Hgb (12.0-16.0) g/dL Hct (36.0-46.0) % MCV (80.0-98.0) fL MCH (27.0-32.0) pg MCHC (31.0-37.0) g/dL RDW Std Deviation (28.0-62.0) fl RDW Coeff of Alvaro (11.0-15.0) % Plt Count (150-400) K/uL MPV (7.40-12.00) fL Neut % (Auto) (48.0-80.0) % Lymph % (Auto) (16.0-40.0) % [place] % (Auto) (0.0-15.0) % Eos % (Auto) (0.0-7.0) % Baso % (Auto) (0.0-1.5) % Neut # (Auto) (1.4-5.7) K/uL Lymph # (Auto) (0.6-2.4) K/uL [place] # (Auto) (0.0-0.8) K/uL Eos # (Auto) (0.0-0.7) K/uL Baso # (Auto) (0.0-0.1) K/uL Nucleated RBC % /100WBC Nucleated RBCs # K/uL D-Dimer, Quantitative (0.0-0.50) mg/L FEU Sodium (136-145) mmol/L Potassium (3.5-5.1) mmol/L Chloride (98-107) mmol/L Carbon Dioxide (21.0-32.0) mmol/L BUN (7.0-18.0) mg/dL Creatinine (0.6-1.0) mg/dL Est Cr Clr Drug Dosing mL/min Estimated GFR (MDRD) ml/min Glucose (74-106) mg/dL Calcium (8.5-10.1) mg/dL Total Bilirubin (0.2-1.0) mg/dL AST (15-37) IU/L ALT (14-63) IU/L Alkaline Phosphatase (46-116) U/L Troponin I (0.000-0.056) ng/mL Total Protein (6.4-8.2) g/dL Albumin (3.4-5.0) g/dL Globulin (2.6-4.0) g/dL Albumin/Globulin Ratio (0.9-1.6) Group A Strep (PCR) NOT DETECTED (NOT DETECT) Meds: Medications Discontinued Medications Generic Name Dose Route Start Last Admin Trade Name Freq PRN Reason Stop Dose Admin Azithromycin 500 mg 09/07/20 22:27 09/07/20 22:36 Azithromycin 250 Mg Tab PO 09/07/20 22:28 500 mg Q24H ONE Administration
[2020-09-07 21:54] LABS: BLOOD UREA NITROGEN,BUN 17 mg/dL (7.0-18.0); CARBON DIOXIDE,CO2 22.3 mmol/L (21.0-32.0); CHLORIDE,CL 100 mmol/L (98-107); GLUCOSE RANDOM 214 mg/dL (74-106); POTASSIUM,K 3.9 mmol/L (3.5-5.1); SODIUM,NA 135 mmol/L (136-145)
[2020-09-07] MEDS ORDERED: Azithromycin 250 MG Tab PO ONE (22:27)
--- NOTE | 2020-09-07 22:54 | CR ---
INDICATION: Shortness of breath TECHNIQUE: Portable upright AP view of the chest COMPARISON: Repeat chest radiograph 06/23/2020 FINDINGS: Again demonstrated is lung hyperinflation suggestive of emphysema. There is no airspace consolidation, sizable pleural effusion or pneumothorax. The cardiomediastinal silhouette is normal. The visualized osseous structures are unremarkable. IMPRESSION: No acute intrathoracic process. Dictated by Tyra Jin MD @ Sep 07 2020 10:51PM Signed by Dr. Tyra Jin @ Sep 07 2020 10:53PM
[2020-09-07 23:30] VITALS: BP 109/50; PULSE 92
== END 2020-09-07 23:28 | disposition home or self-care (01) ==
LOC: MW.ED 21:11
DX: J40 Bronchitis, not specified as acute or chronic (principal); J06.9 Acute upper respiratory infection, unspecified; Z88.2 Allergy status to sulfonamides; Z79.82 Long term (current) use of aspirin; Z79.899 Other long term (current) drug therapy; Z87.891 Personal history of nicotine dependence
CPT/HCPCS: 36415; 71045; 80053; 84484; 85025; 85379; 87651; 93005; 99285; A9270; 93010; 99283

== ENCOUNTER 2020-12-20 07:48 | Day surgery (SDC) | payer MEDICARE, BC ==
[~2020-12-20 07:48] MED LIST: Lidocaine 2% 5 ML SDV ONE; Ondansetron 4 MG/2 ML SDV ONE; Propofol 200 MG/20 ML SDV ONE; fentaNYL 100 MCG/2 ML SDV ONE
--- NOTE | 2020-12-20 08:14 | PCM.PREANE ---
Preanesthetic Assessment - Anesthesia/Transfusion/Family Hx Anesthesia History: Prior Anesthesia Without Reaction Other Type of Anesthesia Reaction Comment: Little motion sickness, Awoke breast biopsy 'vomiting', no other problems Transfusion History: No Prior Transfusion(s) - Review of Systems General: No Symptoms Pulmonary: No Symptoms Cardiovascular: No Symptoms Gastrointestinal: No Symptoms Neurological: No Symptoms Other: Reports: None - Physical Assessment NPO Status Date: 12/20/20 NPO Status Time: 00:00 Vital Signs: Last Vital Signs Temp 97.7 F 12/20/20 08:02 Pulse 84 12/20/20 08:02 Resp 14 12/20/20 08:02 BP 139/73 12/20/20 08:02 Pulse Ox 96 12/20/20 08:02 Height: 5 ft 5 in Weight: 108 lb Mental Status: Alert & Oriented x3 Airway Class: Mallampati = 2 Dentition: Reports: Normal Dentition ROM/Head Extension: Full Lungs: Clear to Auscultation, Normal Respiratory Effort Cardiovascular: Regular Rate, Regular Rhythm - Allergies Allergies/Adverse Reactions: Allergies Allergy/AdvReac Type Severity Reaction Status Date / Time Sulfa (Sulfonamide Allergy Cannot Verified 12/19/20 10:14 Antibiotics) Remember - Acknowledgements Anesthesia Type Planned: General Anesthesia Pt an Appropriate Candidate for the Planned Anesthesia: Yes Alternatives and Risks of Anesthesia Discussed w Pt/Guardian: Yes Pt/Guardian Understands and Agrees with Anesthesia Plan: Yes PreAnesthesia Questionnaire HEENT History: Reports: Allergic Rhinitis, Impaired Vision Other HEENT History: wears glasses, upper denture, lower partial Cardiovascular History: Reports: None Respiratory History: Reports: COPD Other Respiratory History: 40 yr history of smoking QUIT 15 yrs ago, Hx: Lung biopsy, COPD-uses inhaler daily Gastrointestinal History: Reports: GERD, Hiatal Hernia, Other (See Below) Genitourinary History: Reports: None [employer] History: Reports: Musculoskeletal History: Reports: Fracture, RA Other Musculoskeletal History: hx fx right hand "wrist area" Neurological History: Reports: Other (See Below) Other Neuro History: restless leg syndrome Psychiatric History: Reports: None Endocrine/Metabolic History: Reports: None Hematologic History: Reports: None Immunologic History: Reports: None Oncologic (Cancer) History: Reports: None Dermatologic History: Reports: None - Infectious Disease History Infectious Disease History: Reports: Chicken Pox, Measles, Mumps - Past Surgical History Head Surgeries/Procedures: Reports: None HEENT Surgical History: Reports: None Cardiovascular Surgical History: Reports: None Respiratory Surgical History: Reports: Other (See Below) Other Respiratory Surgeries/Procedures: lung biopsy GI Surgical History: Reports: Cholecystectomy, Colonoscopy, EGD Female Surgical History: Reports: Breast Biopsy, Hysterectomy, Salpingo- Oophorectomy, Other (See Below) Other Female Surgeries/Procedures: Colporrhaphy, Repair of Cystocele Endocrine Surgical History: Reports: None Neurological Surgical History: Reports: None Musculoskeletal Surgical History: Reports: Other (See Below) Other Musculoskeletal Surgeries/Procedures:: right wrist surgery Oncologic Surgical History: Reports: None Dermatological Surgical History: Reports: None - SUBSTANCE USE Tobacco Use Status *Q: Former Tobacco User Tobacco Use Within Last Twelve Months: No - HOME MEDS Home Medications: Home Meds Pantoprazole [ProTONIX] 40 mg PO DAILY 03/18/14 [History] Tiotropium [Spiriva HandiHaler] 2 inhalation INH ACBREAKFAST 03/18/14 [History] ALPRAZolam [Alprazolam] 1 - 1.5 tab PO BEDTIME PRN 02/25/15 [History] Aspirin [Halfprin] 1 tab PO DAILY 02/25/15 [History] Albuterol [Ventolin HFA] 2 puff INH ASDIRECTED PRN 12/19/20 [History] Alendronate Sodium 70 mg PO WEEKLY 12/19/20 [History] Alpha Lipoic Acid 600 mg PO DAILY 12/19/20 [History] Cholecalciferol (Vitamin D3) [Vitamin D3] 4,000 units PO DAILY 12/19/20 [History] Cyanocobalamin (Vitamin B12) [Vitamin B12] 500 mcg PO DAILY 12/19/20 [History] Fish Oil/DHA/EPA [Fish Oil 1,200 MG] 1,200 mg PO DAILY 12/19/20 [History] Fluticasone Propionate [Flonase Allergy Relief] 1 spray NASBOTH DAILY PRN 12/19/20 [History] Loratadine [Claritin] 10 mg PO DAILY PRN 12/19/20 [History] Sucralfate 1 gm PO QID 12/19/20 [History] estradioL [Estrace 0.01% Vaginal Crm] 1 applic VAG ASDIRECTED 12/19/20 [History] - CURRENT (IN HOUSE) MEDS Current Meds: Current Medications Discontinued Medications Fentanyl (Fentanyl 100 Mcg/2 Ml Sdv) Confirm Administered Dose 100 mcg .ROUTE .STK-MED ONE Stop: 12/20/20 07:03 Lidocaine (Lidocaine 2% 5 Ml Sdv) Confirm Administered Dose 5 ml .ROUTE .STPICS Auditing-MED ONE Stop: 12/20/20 07:03 Ondansetron HCl (Ondansetron 4 Mg/2 Ml Sdv) Confirm Administered Dose 4 mg .ROUTE .STK-MED ONE Stop: 12/20/20 07:03 Propofol (Propofol 200 Mg/20 Ml Sdv) Confirm Administered Dose 200 mg .ROUTE .STK-MED ONE Stop: 12/20/20 07:03
--- NOTE | 2020-12-20 10:44 | PCM48HPAN ---
Post Anesthesia Note - EVALUATION WITHIN 48HRS OF ANESTHETIC Vital Signs in Normal Range: Yes Patient Participated in Evaluation: Yes Respiratory Function Stable: Yes Airway Patent: Yes Cardiovascular Function Stable: Yes Hydration Status Stable: Yes Pain Control Satisfactory: Yes Nausea and Vomiting Control Satisfactory: Yes Mental Status Recovered: Yes Vital Signs: Last Vital Signs Temp 97.7 F 12/20/20 08:02 Pulse 66 12/20/20 10:36 Resp 16 12/20/20 10:36 BP 112/55 L 12/20/20 10:36 Pulse Ox 97 12/20/20 10:36
--- NOTE | 2020-12-20 10:44 | PCM.POSTAN ---
POST ANESTHESIA ASSESSMENT - MENTAL STATUS Mental Status: Alert, Oriented - VITAL SIGNS Vital Signs: Last Vital Signs Temp 97.7 F 12/20/20 08:02 Pulse 66 12/20/20 10:36 Resp 16 12/20/20 10:36 BP 112/55 L 12/20/20 10:36 Pulse Ox 97 12/20/20 10:36 - RESPIRATORY Respiratory Status: Respiratory Rate WNL, Airway Patent, O2 Saturation Stable - CARDIOVASCULAR CV Status: Pulse Rate WNL, Blood Pressure Stable - GASTROINTESTINAL GI Status: No Symptoms - POST OP HYDRATION Hydration Status: Adequate & Stable
[2020-12-20 11:17] VITALS: BP 118/65; PULSE 78
--- NOTE | 2020-12-20 12:07 | PCM.OPNOTE ---
- General Post-Op/Procedure Note Date of Surgery/Procedure: 12/20/20 Operative Procedure(s): Diagnostic EGD with biopsy Findings: Normal appearing upper GI. Pre Op Diagnosis: Epigastic abdominal pain Post-Op Diagnosis: same Anesthesia Technique: MAC Primary Surgeon: Teresa Mathias Condition: Good Free Text/Narrative:: Intake & Output 12/19/20 12/20/20 12/20/20 22:59 06:59 14:59 Intake Total 950 Balance 950
--- NOTE | 2020-12-20 16:53 | OR ---
SURGEON: TERESA MATHIAS MD DATE OF PROCEDURE: 12/20/2020 PREOPERATIVE DIAGNOSIS: Epigastric abdominal discomfort. POSTOPERATIVE DIAGNOSIS: Epigastric abdominal discomfort. PROCEDURE PERFORMED: Diagnostic esophagogastroduodenoscopy with biopsy. PRIMARY SURGEON: Teresa Mathias MD. ANESTHESIA: MAC. INSTRUMENT USED: Olympus endoscope. EXTENT OF EXAM: To the second portion of duodenum. PREPARATION: Good. LIMITATIONS: None. INDICATIONS FOR EXAMINATION: The patient is a 75-year-old female who presents to clinic with worsening epigastric pain. She has a history of GERD, which has been well controlled on [id number] PPIs. Lately, however, the patient has been having increasing abdominal discomfort. Her primary care provider placed her on Carafate which has been helping. She has not had an EGD. The decision was made to proceed with a diagnostic EGD with biopsies. I explained the procedure, expected perioperative course, and the risks. She verbalized understanding and wishes to proceed. PROCEDURE IN DETAIL: The patient was brought to the endoscopy suite and placed in a beach chair position. A time-out was completed verifying the patient's name, age, date of , allergies, and procedure to be performed. Monitored anesthesia care was induced and a bite block was placed in the patient's mouth. Continuous oxygen was provided via nasal cannula throughout the procedure. After adequate sedation was achieved, a well-lubricated endoscope was placed in the patient's mouth and advanced under direct visualization to the second portion of duodenum. This appeared normal and a photograph was taken. The scope was then fully withdrawn while examining the color, texture, anatomy, and integrity of the mucosa of the upper GI tract. The duodenum appeared normal. The scope was brought into the stomach and a photograph was taken of the pylorus and GE junction. I saw no evidence of a hiatal hernia. The gastric mucosa appeared normal with no evidence of inflammation or gross ulceration. Biopsies were taken of the gastric antrum, body, and fundus and sent for histologic review and H. pylori testing. The scope was then brought into the distal esophagus. The distal esophagus appeared normal. The Z-line showed no evidence of irregularity. A photograph of this was taken. A biopsy was taken of the distal esophageal mucosa and sent to pathology labeled as esophagus. The scope was removed and the procedure terminated. The patient tolerated the procedure well and was transferred to the PACU in stable condition. ENDOSCOPIC DIAGNOSIS: Epigastric abdominal pain. RECOMMENDATIONS: Follow up in clinic in 2 weeks. ESTEBAN RAY /[id number]
== END 2020-12-20 11:17 | disposition home or self-care (01) ==
LOC: MW.SDS 07:48
PROVIDERS: ATTEND Surgery
DX: K29.00 Acute gastritis without bleeding (principal); K29.50 Unspecified chronic gastritis without bleeding; K21.9 Gastro-esophageal reflux disease without esophagitis; J44.9 Chronic obstructive pulmonary disease, unspecified; M81.0 Age-related osteoporosis without current pathological fracture; I10 Essential (primary) hypertension; E78.00 Pure hypercholesterolemia, unspecified; Z88.2 Allergy status to sulfonamides; Z79.899 Other long term (current) drug therapy; Z87.891 Personal history of nicotine dependence
CPT/HCPCS: 43239; J2405; J2704; J3010; 00731; 88305; 88342; 99100